=== PATIENT | female | born 1995 | race Caucasian/White ===

== ENCOUNTER 2018-02-02 09:57 | Emergency (ER) | payer MEDICAID ==
--- NOTE | 2018-02-02 12:06 | EDM.PDOC ---
ED HPI GENERAL MEDICAL PROBLEM - General Chief Complaint: Chest Pain Stated Complaint: CHEST PAIN - HURTS TO BREATHE Time Seen by Provider: 02/02/18 10:26 Source of Information: Reports: Patient History Limitations: Reports: No Limitations - History of Present Illness INITIAL COMMENTS - FREE TEXT/NARRATIVE: The patient presents with mid chest pain. This started last night with clavicle pain and it went to the mid chest. She says it is sharp at times. She has no shortness of breath. She has no fever, chills, cough, abdominal pain , nausea or vomiting. She has no history of this before. She has no heart problems in her family. She has no swelling or pain in her legs. She has no history of DVT or PE. She does smoke and she is on control. She is also anxious with this. Onset: Gradual Duration: Day(s): (Last night) Location: Reports: Chest Quality: Reports: Sharp Severity: Moderate Improves with: Reports: None Worsens with: Reports: None Associated Symptoms: Reports: Chest Pain. Denies: Cough, Fever/Chills, Headaches, Nausea/Vomiting, Shortness of Breath Chest Pain Score (Numeric/FACES): 4 - Related Data Allergies Allergy/AdvReac Type Severity Reaction Status Date / Time Penicillins Allergy Severe Anaphylactic Verified 02/02/18 10:12 Shock vancomycin Allergy Itching Verified 02/02/18 10:12 Home Meds: Home Meds Control. 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 , Other MEDICAL SCREENER History: hx of ectopic - Past Surgical History HEENT Surgical History: Reports: Oral Surgery ED ROS GENERAL - Review of Systems Review Of Systems: See Below Constitutional: Reports: No Symptoms HEENT: Reports: No Symptoms Respiratory: Reports: No Symptoms Cardiovascular: Reports: Chest Pain Endocrine: Reports: No Symptoms GI/Abdominal: Reports: No Symptoms : Reports: No Symptoms Musculoskeletal: Reports: No Symptoms Skin: Reports: No Symptoms ED EXAM, GENERAL - Physical Exam Exam: See Below Exam Limited By: No Limitations General Appearance: Alert, No Apparent Distress Ears: Normal External Exam Nose: Normal Inspection Head: Atraumatic, Normocephalic Neck: Normal Inspection Respiratory/Chest: No Respiratory Distress, Lungs Clear, Normal Breath Sounds Cardiovascular: Regular Rate, Rhythm, No Edema, No Murmur GI/Abdominal: Soft, Non-Tender, No Organomegaly, No Mass Back Exam: Normal Inspection Extremities: Normal Inspection Neurological: Alert, Oriented, No Motor/Sensory Deficits EKG INTERPRETATION EKG Date: 02/02/18 Time: 10:08 Rhythm: Other (sinus tachycardia) Rate (Beats/Min): 110 [place]: Normal P-Wave: Present QRS: Normal ST-T: Normal QT: Normal Course - Vital Signs Last Recorded V/S: Last Vital Signs Temp 98.5 F 02/02/18 10:13 Pulse 65 02/02/18 11:04 Resp 18 02/02/18 11:04 BP 117/78 02/02/18 11:04 Pulse Ox 100 02/02/18 11:04 - Orders/Labs/Meds Orders: Active Orders 24 hr Category Date Time Status Cardiac Monitoring [RC] . DIRECTED Care 02/02/18 10:43 Active EKG Documentation Completion [RC] ASDIRECTED Care 02/02/18 10:18 Active Chest 2V [CR] Stat Exams 02/02/18 10:43 Taken EKG 12 Lead [EK] Stat Ther 02/02/18 10:18 Ordered Labs: Laboratory Tests 02/02/18 02/02/18 02/02/18 Range/Units 11:10 11:10 11:10 WBC 8.54 (3.98-10.04) K/mm3 RBC 5.36 H (3.98-5.22) M/mm3 Hgb 17.7 H (11.2-15.7) gm/L Hct 51.0 H (34.1-44.9) % MCV 95.1 H (79.4-94.8) fl MCH 33.0 H (25.6-32.2) pg MCHC 34.7 (32.2-35.5) g/dl RDW Std Deviation 41.7 (36.4-46.3) fL Plt Count 221 (182-369) K/mm3 MPV 10.3 (9.4-12.3) fl Neut % (Auto) 62.5 (34.0-71.1) % Lymph % (Auto) 28.2 (19.3-51.7) % [place] % (Auto) 6.4 (4.7-12.5) % Eos % (Auto) 2.0 (0.7-5.8) Baso % (Auto) 0.8 (0.1-1.2) % Neut # (Auto) 5.33 (1.56-6.13) K/mm3 Lymph # (Auto) 2.41 (1.18-3.74) K/mm3 [place] # (Auto) 0.55 H (0.24-0.36) K/mm3 Eos # (Auto) 0.17 (0.04-0.36) K/mm3 Baso # (Auto) 0.07 (0.01-0.08) K/mm3 D-Dimer, Quantitative < 0.19 L (0.19-0.50) mg/L Sodium 142 (136-145) mEq/L Potassium 3.6 (3.5-5.1) mEq/L Chloride 105 (98-107) mEq/L Carbon Dioxide 24 (21-32) mEq/L Anion Gap 16.6 H (5-15) BUN 6 L (7-18) mg/dL Creatinine 0.8 (0.55-1.02) mg/dL Est Cr Clr Drug Dosing 100.63 mL/min Estimated GFR (MDRD) > 60 (>60) mL/min BUN/Creatinine Ratio 7.5 L (14-18) Glucose 98 (74-106) mg/dL Calcium 9.5 (8.5-10.1) mg/dL Total Bilirubin 1.0 (0.2-1.0) mg/dL AST 16 (15-37) U/L ALT 19 (14-59) U/L Alkaline Phosphatase 65 (46-116) U/L Troponin I < 0.017 (0.00-0.056) ng/mL Total Protein 8.4 H (6.4-8.2) g/dl Albumin 4.5 (3.4-5.0) g/dl Globulin 3.9 gm/dL Albumin/Globulin Ratio 1.2 (1-2) HCG, Qual (NEGATIVE) 02/02/18 Range/Units 11:10 WBC (3.98-10.04) K/mm3 RBC (3.98-5.22) M/mm3 Hgb (11.2-15.7) gm/L Hct (34.1-44.9) % MCV (79.4-94.8) fl MCH (25.6-32.2) pg MCHC (32.2-35.5) g/dl RDW Std Deviation (36.4-46.3) fL Plt Count (182-369) K/mm3 MPV (9.4-12.3) fl Neut % (Auto) (34.0-71.1) % Lymph % (Auto) (19.3-51.7) % [place] % (Auto) (4.7-12.5) % Eos % (Auto) (0.7-5.8) Baso % (Auto) (0.1-1.2) % Neut # (Auto) (1.56-6.13) K/mm3 Lymph # (Auto) (1.18-3.74) K/mm3 [place] # (Auto) (0.24-0.36) K/mm3 Eos # (Auto) (0.04-0.36) K/mm3 Baso # (Auto) (0.01-0.08) K/mm3 D-Dimer, Quantitative (0.19-0.50) mg/L Sodium (136-145) mEq/L Potassium (3.5-5.1) mEq/L Chloride (98-107) mEq/L Carbon Dioxide (21-32) mEq/L Anion Gap (5-15) BUN (7-18) mg/dL Creatinine (0.55-1.02) mg/dL Est Cr Clr Drug Dosing mL/min Estimated GFR (MDRD) (>60) mL/min BUN/Creatinine Ratio (14-18) Glucose (74-106) mg/dL Calcium (8.5-10.1) mg/dL Total Bilirubin (0.2-1.0) mg/dL AST (15-37) U/L ALT (14-59) U/L Alkaline Phosphatase (46-116) U/L Troponin I (0.00-0.056) ng/mL Total Protein (6.4-8.2) g/dl Albumin (3.4-5.0) g/dl Globulin gm/dL Albumin/Globulin Ratio (1-2) HCG, Qual Negative (NEGATIVE) - Re-Assessments/Exams Free Text/Narrative Re-Assessment/Exam: 02/02/18 12:06 I ordered an EKG, CXR and labs. Her EKG shows a sinus tachycardia with no acute changes. Her CXR shows nothing acute. Her HCG is negative. Her CBC and CMP look good. Her troponin is negative. Her D-dimer is negative. It appears she has some chest wall pain. She also asked if she could get on something for her anxiety. This has been more of a problem lately. Departure - Departure Time of Disposition: 12:10 Disposition: Home, Self-Care 01 Condition: Good Clinical Impression: Chest wall pain, Anxiety Prescriptions: PARoxetine HCl [Paxil] 20 mg PO DAILY #30 tablet Referrals: PCP,Melinda [Primary Care Provider] - Tere Downing PA-C [Physician Deskidding Machine Operator] - 1 Week Additional Instructions: Take motrin or aleve for the chest pain. Take the paxil daily. Please return if you are worse. Follow up with Aga Downing in 2 weeks. - My Orders Last 24 Hours: My Active Orders 02/02/18 10:18 EKG Documentation Completion [RC] ASDIRECTED EKG 12 Lead [EK] Stat 02/02/18 10:43 Cardiac Monitoring [RC] . DIRECTED Chest 2V [CR] Stat - Assessment/Plan Last 24 Hours: My Active Orders 02/02/18 10:18 EKG Documentation Completion [RC] ASDIRECTED EKG 12 Lead [EK] Stat 02/02/18 10:43 Cardiac Monitoring [RC] . DIRECTED Chest 2V [CR] Stat
[2018-02-02 12:19] VITALS: BP 118/80
--- NOTE | 2018-02-04 13:10 | CR ---
Chest: Two views of the chest were obtained. Comparison: Prior chest x-ray of 12/28/14. Heart size and mediastinum are normal. Lungs are clear. Bony structures are unremarkable. Impression: 1. Nothing acute is seen on two-view chest x-ray. Diagnostic code #1
== END 2018-02-02 12:15 | disposition home or self-care (01) ==
LOC: JD.ED 09:57
DX: R07.89 Other chest pain (principal); F41.9 Anxiety disorder, unspecified; Z79.899 Other long term (current) drug therapy; Z79.3 Long term (current) use of hormonal contraceptives; Z88.0 Allergy status to penicillin; Z88.1 Allergy status to other antibiotic agents
CPT/HCPCS: 36415; 71046; 71046-26; 80053; 84484; 84703; 85025; 85379; 93005; 93010; 99284-25; 99285-25

== ENCOUNTER 2020-06-27 16:53 | Emergency (ER) | payer MEDICAID ==
[2020-06-27 17:12] VITALS: BP 127/89; PULSE 110
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
--- NOTE | 2020-06-28 09:12 | CR ---
Right foot: 4 views of the right foot were obtained. Comparison: No prior foot exam is available. Nondisplaced fracture is identified within the base of the fifth metatarsal. Mild adjacent soft tissue swelling is identified. No additional fracture or other abnormality is appreciated. Impression: 1. Nondisplaced fracture involving the base of the right fifth metatarsal. 2. Adjacent soft tissue swelling. Diagnostic code #3
--- NOTE | 2020-06-28 09:12 | CR ---
Chest: 2 views of the chest were obtained. Comparison: No previous chest imaging. Rounded density is seen overlying the right hilum. Lungs otherwise are clear. Heart size and mediastinum are normal. Bony structures appear within normal limits for the patient's age. Impression: 1. Findings overlying the right hilum suspicious for possible masslike area of pneumonia. Please correlate with patient's symptoms. Follow-up study is recommended several weeks after clinical therapy is complete to make sure this finding resolves. 2. No other acute abnormality is seen. Diagnostic code #3
--- NOTE | 2020-06-28 09:12 | CR ---
Right ankle: 4 views of the right ankle were obtained. Comparison: No prior right ankle study is available. Ankle mortise is symmetric. Fracture is seen within the base of the fifth metatarsal. No additional fracture or other abnormality is appreciated. Impression: 1. Fracture involving the base of the fifth metatarsal. 2. No other acute abnormality is identified on right ankle exam. Diagnostic code #3
== END 2020-06-27 19:19 | disposition home or self-care (01) ==
LOC: JD.ED 16:53
DX: S92.354A Nondisplaced fracture of fifth metatarsal bone, right foot, initial encounter for closed fracture (principal); J18.9 Pneumonia, unspecified organism; Z88.0 Allergy status to penicillin; Z88.1 Allergy status to other antibiotic agents; Z72.0 Tobacco use; X58.XXXA Exposure to other specified factors, initial encounter
CPT/HCPCS: 71046; 71046-26; 73610-26-RT; 73610-RT; 73630-26-RT; 73630-RT; 81025; 99283; 99283-25